=== PATIENT | male | born 1980 | race Hispanic/Latino ===

== ENCOUNTER 2025-09-18 18:15 | Emergency (ER) | payer SELFPAY ==
[~2025-09-18] VITALS: Ht 160 cm; Wt 65.8 kg
[2025-09-18 19:28] LABS: IMMATURE GRANULOCYTE ABSOLUTE 0.02 K/uL (0-1); NUCLEATED RED BLOOD CELLS 0.0 % (0.0-0.19); PLATELET COUNT (AUTO) 266 K/uL (130-400); RED BLOOD CELL COUNT(AUTO) 4.73 MIL/uL (4.50-6.20); RED CELL DISTRIBUTION WIDTH 12.3 % (11.0-15.5); WHITE BLOOD COUNT (AUTO) 5.3 K/uL (4.8-10.8)
--- NOTE | 2025-09-18 19:28 | HMCIMG ---
EXAM: CR Chest, 1 View. CLINICAL HISTORY: cp COMPARISON: None provided. FINDINGS: LUNGS: There is no mass, infiltrate, or acute pulmonary abnormality. PLEURAL SPACES: No evidence of pleural effusion or pneumothorax. MEDIASTINUM: Cardiac size and mediastinal contours within normal limits. BONES: No aggressive appearing osseous lesion seen. IMPRESSION: No acute cardiopulmonary pathology is evident. /[place]
--- NOTE | 2025-09-18 19:40 | NUR ---
PT PLACED IN ROOM 10. PT CARE ASSUMED AT THIS TIME.
[2025-09-18 19:44] LABS: CREATININE 1.0 mg/dL (0.5-1.3); GLOMERULAR FILTR. RATE CALC 95.0 mL/min (>90); GLUCOSE,RANDOM 88.0 mg/dL (70-105); SODIUM SERUM 140.0 mmol/L (136-145); UREA NITROGEN, BLOOD 13.0 mg/dL (7-18)
[2025-09-18 19:47] LABS: CREATINE KINASE, TOTAL 156.0 U/L (21-232)
[2025-09-18] MEDS: ASPIRIN 325MG TAB PO ONE (19:56)
[2025-09-18 20:24] LABS: AMPHET/METH SCREEN,URINE NEGATIVE (NEGATIVE); BARBITURATE SCREEN, URINE NEGATIVE (NEGATIVE); CANNABINOID SCREEN,URINE NEGATIVE (NEGATIVE); COCAINE SCREEN,URINE NEGATIVE (NEGATIVE)
--- NOTE | 2025-09-18 20:52 | ERN ---
ED Note History of Present Illness Stated Complaint: CHEST PAIN Chief Complaint: Chest Pain Time Seen by MD: 18:20 Time Seen by Midlevel: 18:20 Dictation: The patient is a 45-year-old male with no past medical history who presents to the emergency department with complaints of chest pain onset yesterday. Patient reports pain is constant. Denies any shortness of breath, diaphoresis or any other associated symptoms. Allergies: Coded Allergies: No Known Allergies (Verified Allergy, Unknown, 04/12/15) No Known Drug Allergies (Verified Allergy, Unknown, 04/12/15) Past Medical History Past Medical History: No Pertinent History Surgical History: None RN Note Reviewed/Agreed w/PFSH: Yes Review of System Dictation Constitutional: Negative for fever,chills, and weight loss Eyes: Negative for injury, pain,redness, and discharge ENT: Negative for injury,pain or swelling Cardiovascular: Negative for palpitations, and edema positive for chest pain Respiratory: Negative for shortness of breath, cough, and wheezing, Abdomen/GI: Negative for abdominal pain, nausea, vomiting, diarrhea, and constipation Back: Negative for injury and pain : Negative for injury, bleeding and discharge MS/Extremity: Negative for injury and deformity Skin: Negative for rash, and discoloration Neuro: Negative for headache, weakness, numbness, tingling, and seizure Psych: Negative for suicide ideation, homicidal ideation, and hallucinations Initial Vital Sign VS Vital Signs Date Time Temp Pulse Resp B/P (MAP) Pulse Ox O2 Delivery O2 Flow Rate FiO2 09/18/25 18:15 98.1 66 20 136/92 97 Room Air 09/18/25 19:49 0 21 Physical Exam Dictation Vital Signs reviewed General Appearance: Alert, oriented x 3, no acute distress, well developed, nourished. Head and Face: non-traumatic. Eyes: PERRL, pink conjunctivas, eyelid no trauma, anterior chamber with arcus senilis. Ears: Pinnas intact and no signs of trauma or erythema ear canals clear and no discharge TM no erythema Nose: No discharge, no bleeding. Oropharynx: Mouth normal, tongue pink. pharynx clear,no erythema, tonsils no exudates, no abscesses noted, mucous membrane moist Neck: Supple, non-tender, no thyromegaly, no masses, no JVD, no bruits Breast:Deferred Chest:No tenderness, no crepitus, no paradoxical movement, no retractions Lungs:Clear, well-ventilated, symmetric, no rales, no wheezing, no rhonchi, no stridor, good breath sounds bilaterally Heart: Regular rate, regular rhythm, no murmur, no gallops Vascular: no peripheral edema, Abdomen: Soft, positive bowel sounds, nondistended, no guarding, nontender, no rebound, no masses no hepatomegaly, no splenomegaly, no Carnes's sign, no hernias. Rectal: Deferred Genital: Deferred Neurological: Normal speech, motor function intact, sensory function intact Musculoskeletal: Neck nontender, full range of motion, back nontender, full range of motion, Extremities: nontender, full range of motion Skin: Color pink, dry, no turgor, no rash, no lacerations, no abrasions, no contusions. Lymphatic: Deferred Results (Laboratory/Radiology) Laboratory/Radiology Laboratory Tests Test 09/18/25 19:18 09/18/25 19:57 09/18/25 20:40 White Blood Count 5.3 K/uL (4.8-10.8) Red Blood Count 4.73 MIL/uL (4.50-6.20) Hemoglobin 15.1 g/dL (14.0-18.0) Hematocrit 43.1 % (42-54) Mean Corpuscular Volume 91.1 fL (79-99) Mean Corpuscular Hemoglobin 31.9 pg (27.0-33.0) Mean Corpuscular Hemoglobin Concent 35.0 g/dL (32.0-36.0) Red Cell Distribution Width 12.3 % (11.0-15.5) Platelet Count 266 K/uL (130-400) Mean Platelet Volume 10.0 fL (7.5-10.5) Immature Granulocyte % (Auto) 0.4 % (0-1) Neutrophils (%) (Auto) 49.2 % (40.0-77.0) Lymphocytes (%) (Auto) 36.6 % (21.0-51.0) Monocytes (%) (Auto) 8.9 % (3.0-13.0) Eosinophils (%) (Auto) 3.6 % (0.0-8.0) Basophils (%) (Auto) 1.3 % (0.0-5.0) Neutrophils # (Auto) 2.6 K/uL (1.8-7.7) Lymphocytes # (Auto) 1.9 K/uL (1.0-4.8) Monocytes # (Auto) 0.5 K/uL (0.1-1.0) Eosinophils # (Auto) 0.19 K/uL (0.00-0.70) Basophils # (Auto) 0.07 K/uL (0.00-0.20) Absolute Immature Granulocyte (auto 0.02 K/uL (0-1) Nucleated Red Blood Cells 0.0 % (0.0-0.19) Sodium Level 140 mmol/L (136-145) Potassium Level 3.5 mmol/L (3.5-5.1) Chloride Level 107 mmol/L (101-111) Carbon Dioxide Level 27 mmol/L (21-32) Blood Urea Nitrogen 13 mg/dL (7-18) Creatinine 1.0 mg/dL (0.5-1.3) Glomerular Filtration Rate Calc 95 mL/min (>90) Random Glucose 88 mg/dL (70-105) Total Calcium 8.5 mg/dL (8.5-10.1) Magnesium Level 2.00 mg/dL (1.80-2.40) Total Creatine Kinase 156 U/L (21-232) Troponin I High Sensitivity 9 ng/L (4-75) 8 ng/L (4-75) Lipase 57 U/L (16-77) Urine Opiates Screen NEGATIVE (NEGATIVE) Urine Barbiturates Screen NEGATIVE (NEGATIVE) Urine Phencyclidine Screen NEGATIVE (NEGATIVE) Urine Amphetamines Screen NEGATIVE (NEGATIVE) Urine Benzodiazepines Screen NEGATIVE (NEGATIVE) Urine Cocaine Screen NEGATIVE (NEGATIVE) Urine Marijuana (THC) Screen NEGATIVE (NEGATIVE) REASON: cp ORDERING PHYSICIAN: RYAN MURRAY [employer] PROCEDURE: CXR1VW - CHEST 1VW EXAM: CR Chest, 1 View. CLINICAL HISTORY: cp COMPARISON: None provided. FINDINGS: LUNGS: There is no mass, infiltrate, or acute pulmonary abnormality. PLEURAL SPACES: No evidence of pleural effusion or pneumothorax. MEDIASTINUM: Cardiac size and mediastinal contours within normal limits. BONES: No aggressive appearing osseous lesion seen. IMPRESSION: No acute cardiopulmonary pathology is evident. /[place] Labs Reviewed?: Yes EKG: (+) rhythm (Sinus rhythm) EKG Comment: Date:09/18/2025 Time:1806 Ventricular rate:58 WA interval:157 QRS duration:97 QT/QTc:410/403 EKG interpretation: Sinus rhythm Reviewed by ED Attending no STEMI ED Course ED Course Orders Procedure Category Date Status Time Cbc With Differential LAB 09/18/25 Complete 18:23 Chest 1vw RAD 09/18/25 Resulted 18:23 12 Lead Ekg Tracing- EKG 09/18/25 Logged Technical 18:23 Magnesium LAB 09/18/25 Complete 18:23 Creatine Kinase, Total LAB 09/18/25 Complete 18:23 Troponin I High LAB 09/18/25 Complete Sensitivity 18:23 Aspirin 325mg Tab PHA 09/18/25 Complete (Aspirin 325mg Tab) 18:30 Basic Metabolic Panel LAB 09/18/25 Complete 18:23 Drug Screen Urine LAB 09/18/25 Complete 18:23 Lipase LAB 09/18/25 Complete 18:23 Troponin I High LAB 09/18/25 Complete Sensitivity 20:07 Current Medications Medications (Trade) Dose Ordered Sig/[place] Route PRN Reason Start Time Stop Time Status Last Admin Dose Admin Aspirin (Aspirin 325mg Tab) 325 mg ONCE ONCE PO 09/18/25 18:30 09/18/25 18:31 DC 09/18/25 19:56 Vital Signs Date Time Temp Pulse Resp B/P (MAP) Pulse Ox O2 Delivery O2 Flow Rate FiO2 09/18/25 19:49 98.2 75 19 126/80 97 Room Air* 0 21 09/18/25 18:15 98.1 66 20 136/92 97 Room Air HEART Score Response (Comments) Value History: Low suspicion (0) 0 EKG: Normal 0 Age: 45-65yrs (+1) 1 Risk Factors: No known risk factors (0) 0 Initial Troponin: Normal limit (0) 0 Total 1 Medical Decision Making MDM The patient is a 45-year-old male with no past medical history who presents to the emergency department with complaints of chest pain onset yesterday. Patient reports pain is constant. Denies any shortness of breath, diaphoresis or any other associated symptoms. CBC showed no leukocytosis, no anemia, chemistry showed no electrolyte imbalance, normal renal function, negative lipase no troponin negative x2. Chest x-ray showed no acute pathology. Patient reassessed. Reports that he is no longer having any pain. Labs and imaging discussed with the patient who agrees to follow up with primary doctor. Patient with low risk for cardiac etiology. Differential diagnosis: Costochondritis, ACS, pneumonia, pneumothorax Need for hospitalization: Patient does not meet criteria for hospitalization. There are no social concerns with this patient. DX & DISP Disposition: Discharge Departure Impression: Primary Impression: Chest pain Condition: Stable Additional Instructions: Your labs were unremarkable. Please follow up with your primary doctor in 1-2 days. If anything worsens please return to ER. FOLLOW-UP WITH PRIMARY CARE PROVIDER IN 1 TO 2 DAYS. TAKE MEDICATIONS DIRECTED HERE IN THE EMERGENCY ROOM. OKAY TO CONTINUE HOME MEDICATIONS UNLESS OTHERWISE DISCUSSED DURING YOUR VISIT IN THE EMERGENCY ROOM TODAY. RETURN TO YOUR NEAREST EMERGENCY ROOM IF SYMPTOMS WORSEN OR IF THERE IS NO IMPROVEMENT. CALL 911 IF YOU NEED IMMEDIATE ASSISTANCE. TAKE TYLENOL [id number] NEEDED AND IF NO CONTRAINDICATIONS ARE PRESENT. INCREASE ORAL HYDRATION. A WOUND CULTURE OR URINE CULTURE WAS ORDERED HERE IN THE EMERGENCY ROOM DEPARTMENT PLEASE FOLLOW-UP WITH PRIMARY CARE PROVIDER AND ADVISE THEM TO GET REPEAT PORTS FROM OUR FACILITY. IF YOU HAD ANY BIBI WRAP/SPLINTS THAT WERE APPLIED HERE, PLEASE DO NOT REMOVE THEM UNTIL YOU SEE YOUR PRIMARY CARE OR SPECIALTY. Referrals: NONE (PCP) Time of Disposition: 21:15 I have reviewed the case, and I agree with, Diagnosis and Plan RYAN MURRAY Sep 18, 2025 20:52
[2025-09-18 21:20] VITALS: BP 106/74; PULSE 53; RESP 19; TEMP 98.2; O2SAT 98
--- NOTE | 2025-09-19 11:08 | EKG ---
Test Date: 2025-09-18 Test Time: 18:06:46 Pat Name: CM DALE Department: ED Room: Gender: [place] Aide: [id number] : 1980 Requested By: RYAN MURRAY Order Number: [id number] Reading MD: Margarita Mendes Measurements Intervals Guild Rate: 58 P: 26 WI: 157 QRS: 10 QRSD: 97 T: 10 QT: 410 QTc: 403 Interpretive Statements Sinus rhythm No previous ECG available for comparison Electronically Signed On 09-22-2025 08:52:03 SPOUTER by Margarita Mendes Please click the below link to view image of tracing.
== END 2025-09-18 21:27 | disposition home or self-care (01) ==
LOC: EDH 18:15
DX: R07.9 Chest pain, unspecified (principal)
CPT/HCPCS: 36415; 71045; 80048; 80305; 82550; 83690; 83735; 84484; 85025; 93005; 99285